=== PATIENT | female | born 1950 | race Asian ===

== ENCOUNTER 2016-12-27 10:03 | Inpatient (IN) | payer MEDICAID ==
[~2016-12-27] VITALS: Ht 149.9 cm; Wt 49.5 kg
--- NOTE | 2016-12-27 10:30 | NUR ---
PT BIB [facility] FOR R SIDE NECK MASS X 7 MONTHS AGO. PT ALSO COMPLAINS OF MINIMAL DIFFICULTY SWALLOWING AND PRESSURE HEADACHES. VSS. PT AAOX3. SEEN BY MD FOR EVAL. AWAITING FOR ORDERS. SAFETY AND COMFORT MEASURES PROVIDED. WILL MONITOR.
--- NOTE | 2016-12-27 10:42 | NUR ---
IV ACCESS STARTED, BLOOD DRAWN FOR LABS.
[2016-12-27 10:44] LABS: BASOPHILS # (AUTO) 0.1 /CMM (0.0-0.2); BASOPHILS % (AUTO) 0.7 % (0.0-2.0); EOSINOPHILS # (AUTO) 0.2 /CMM (0.0-0.7); EOSINOPHILS % (AUTO) 1.6 % (0.0-6.0); HEMATOCRIT 36 % (33-45); HEMOGLOBIN 11.8 g/dL (11.5-14.8); LYMPHOCYTES # (AUTO) 3.2 /CMM (0.8-4.8); LYMPHOCYTES % (AUTO) 30.7 % (20.0-44.0); MEAN CORPUSCULAR HEMOGLOBIN 28 PG (26.0-33.0); MEAN CORPUSCULAR HGB CONC 33 g/dl (31.0-36.0); MEAN CORPUSCULAR VOLUME 87 fL (82-100); MONOCYTES # (AUTO) 0.7 /CMM (0.1-1.30); MONOCYTES % (AUTO) 6.4 % (2.0-12.0); NEUTROPHILS # (AUTO) 6.1 /CMM (1.8-8.9); NEUTROPHILS % (AUTO) 60.6 % (43.0-81.0); PLATELET COUNT (AUTO) 438 /CMM (150-450); RED BLOOD CELL COUNT(AUTO) 4.15 MIL/uL (4.0-5.2); WHITE BLOOD COUNT (AUTO) 10.3 K/uL (4.3-11.0)
[2016-12-27 10:51] LABS: POTASSIUM 4.2 mmol/L (3.5-5.1)
[2016-12-27] MEDS ORDERED: IV NS 0.9% 250 ML IV ONE (11:14)
[2016-12-27] MEDS ORDERED: IOHEXOL-300 100 ML VIAL IV ONE (11:14)
--- NOTE | 2016-12-27 11:15 | NUR ---
PT TAKEN TO CT.
--- NOTE | 2016-12-27 11:32 | NUR ---
PT BACK FROM CT.
--- NOTE | 2016-12-27 12:11 | NUR ---
CALLED NOE HUTCHINSON FOR MS BED
[2016-12-27] MEDS ORDERED: TRAM50TA2 PO (12:18)
[2016-12-27] MEDS ORDERED: HYDR25TA4 PO (12:18)
[2016-12-27] MEDS ORDERED: VANCOMYCIN 1 GM in IV D5W 250 ML IV ONE (12:30)
--- NOTE | 2016-12-27 13:15 | NUR ---
REPORT GIVEN TO ERIBERTO CARY FOR MS ROOM 102
--- NOTE | 2016-12-27 13:51 | NUR ---
MS RN ADMITTING NOTES ADMITTED A 75 Y/O FEMALE AT 1335H VIA WHEELCHAIR ACCOMPANIED BY E.R. NURSE AND FAMILY. A/0 X4, VERBALLY RESPONSIVE WITH NO COMPLAINTS OF PAIN. PT HAS DIAGNOSIS OF RIGHT SIDED NECK MASS WITH SIGNIFICANT SECONDARY DX OF HYPERTENSION. PT HAS IV ACCESS ON LEFT FOREARM G#20, INTACT AND PATENT, FLUSHING WELL. V/S CHECKED AND RECORDED. SKIN IS INTACT. BELONGINGS CHECKED, COUNTED AND FILED ON CHART. MD ORDER U/S NEEDLE GUIDED BIOPSY OF NECK. MD AND CHARGE NURSE AWARE OF ADMISSION.
[2016-12-27] MEDS ORDERED: ZOLPIDEM TARTRATE 5 MG TABLET PO PRN (14:30)
[2016-12-27] MEDS ORDERED: TRAMADOL HCL 50 MG TABLET PO PRN (14:30)
[2016-12-27] MEDS ORDERED: HYDROCODONE/APAP 10/325MG 1 EA TABLET PO PRN (14:30)
[2016-12-27] MEDS ORDERED: ONDANSETRON HCL/PF 4 MG/2 ML VIAL IVP PRN (14:30)
[2016-12-27] MEDS ORDERED: ACETAMINOPHEN 325 MG TABLET PO PRN (14:30)
[2016-12-27 15:40] LABS: INR 0.96 (0.87-1.13); PROTHROMBIN TIME 10.3 SECS (9.5-12.7)
--- NOTE | 2016-12-27 15:54 | NUR ---
DR. VILLAGOMEZ RADILOGIST CALLED BIOPSY TO BE DONE FRIDAY SINCE NO PATHOLOGIST AVAILABLE,TONY GIL NOTIFIED AND AGREED,FAMILY MADE AWARE.
[2016-12-27 16:00] VITALS: BP 130/67
--- NOTE | 2016-12-27 18:31 | NUR ---
RN NOTES DR TONY FLORES CAME AND EVALUATED PT. BIOPSY OF NECK TO BE DONE ON FRIDAY. EXPLAINED PROCEDURE TO PT AND VERBALIZED UNDERSTANDING. CONSENT SIGNED BY PT. WILL CONTINUE TO MONITOR PT.
--- NOTE | 2016-12-27 19:02 | NUR ---
,MS RN CLOSING NOTES PATIENT AWAKE AND RESTING IN BED. ALERT AND ORIENTED X4, NO C/O PAIN OR DISCOMFORTS SINCE ADMITTED THIS AFTERNOON. IV ACCESS ON LFA INTACT AND PATENT, SL ONLY. CALL LIGHT WITHIN REACH. BED LOW AND LOCKED. NEEDS ATTENDED WELL. ALL SAFETY MEASURES MAINTAINED. WILL ENDORSED TO NATIONAL ACCOUNT DIRECTOR FOR ELIS.
--- NOTE | 2016-12-27 19:15 | NUR ---
RN INITIAL NOTES RECEIVED PATIENT IN BED, AWAKE AND ALERT X4. PATIENT WITH MASS ON THE R SIDE OF THE NECK, PATIENT ADMITS TO PAIN WITH PALPATION, TENDER TO TOUCH, NOTED WITH DISTAL REDNESS/ERYTHEMA ON SITE. L AC G20, FLUSHED AND PATENT, ON SL. PATIENT'S NEEDS ANTICIPATED AND MET. SAFETY AND COMFORT ENSURED. BED IN LOW AND LOCKED POSITION. CALL LIGHT IN REACH. WILL MONITOR.
[2016-12-27 20:00] VITALS: BP 133/84
--- NOTE | 2016-12-27 22:50 | NUR ---
RN NOTES ENDORSED PATIENT'S CARE TO RAEANN COREAS. PATIENT SLEEPING COMFORTABLY, NO DISTRESS.
--- NOTE | 2016-12-27 23:00 | NUR ---
RN NOTES RECEIVED PATIENT IN BED, AWAKE AND ALERT X4. PATIENT WITH MASS ON THE R SIDE OF THE NECK. IV SITE ON L AC G20, NO S/S OF INFILTRATION NOTED, ON SL. PATIENT'S NEEDS ATTENDED AND MET. SAFETY PRECAUTIONS OBSERVED. BED IN LOW AND LOCKED POSITION. CALL LIGHT IN REACH. WILL CONTINUE TO MONITOR.
[2016-12-28 04:00] VITALS: BP 133/71
[2016-12-28 06:22] LABS: BASOPHILS # (AUTO) 0.1 /CMM (0.0-0.2); BASOPHILS % (AUTO) 0.9 % (0.0-2.0); EOSINOPHILS # (AUTO) 0.2 /CMM (0.0-0.7); HEMATOCRIT 34 % (33-45); HEMOGLOBIN 11.7 g/dL (11.5-14.8); LYMPHOCYTES % (AUTO) 25.6 % (20.0-44.0); MEAN CORPUSCULAR HEMOGLOBIN 30 PG (26.0-33.0); MEAN CORPUSCULAR HGB CONC 34 g/dl (31.0-36.0); MEAN CORPUSCULAR VOLUME 87 fL (82-100); MONOCYTES # (AUTO) 0.7 /CMM (0.1-1.30); MONOCYTES % (AUTO) 9.1 % (2.0-12.0); NEUTROPHILS # (AUTO) 4.7 /CMM (1.8-8.9); NEUTROPHILS % (AUTO) 61.4 % (43.0-81.0); PLATELET COUNT (AUTO) 364 /CMM (150-450); RDW COEFFICIENT OF VARIATION 13.1 (11.5-15.0); RED BLOOD CELL COUNT(AUTO) 3.94 MIL/uL (4.0-5.2); WHITE BLOOD COUNT (AUTO) 7.7 K/uL (4.3-11.0)
[2016-12-28 06:47] LABS: THYROID STIMULATING HORMONE 1.279 uIU/mL (0.358-3.74)
--- NOTE | 2016-12-28 06:57 | NUR ---
RN NOTES PATIENT IN BED, RESTING COMFORTABLY AT THIS TIME, AROUSES EASILY. ALERT X4. PATIENT WITH MASS ON THE R SIDE OF THE NECK. IV SITE ON L AC G20, NO S/S OF INFILTRATION NOTED, ON SL. PATIENT'S NEEDS ATTENDED AND MET. SAFETY PRECAUTIONS OBSERVED. BED IN LOW AND LOCKED POSITION. CALL LIGHT IN REACH. WILL ENDORSE TO NEXT SHIFT FOR ELIS.
--- NOTE | 2016-12-28 07:48 | NUR ---
MS NOTES PATIENT IN BED, RESTING COMFORTABLY AT THIS TIME, A/OX4. RESPRIATIONS EVEN AND UNLABORED, ON ROOM AIR. NOT IN ANY FORM OF DISTRESS OR DISCOMFORT. DENIES PAIN AT THIS TIME. IV SITE ON L AC G20, H/L, NO S/S OF INFILTRATION NOTED. POC DISCUSSED AND AGREED, SAFETY PRECAUTIONS OBSERVED. BED IN LOW AND LOCKED POSITION. CALL LIGHT IN REACH. WILL CONTINUE TO MONITOR.
[2016-12-28 08:00] VITALS: BP 127/68
[2016-12-28 08:08] LABS: ALBUMIN 3.1 g/dL (3.4-5.0); BILIRUBIN,TOTAL 0.3 mg/dL (0.2-1.0); CALCIUM, SERUM 9.2 mg/dL (8.5-10.1); CREATININE 0.8 mg/dL (0.6-1.3); MAGNESIUM 2.1 mg/dL (1.8-2.4); PHOSPHORUS 4.4 mg/dL (2.5-4.9); POTASSIUM 4.1 mmol/L (3.5-5.1); TOTAL PROTEIN, SERUM 9.1 g/dL (6.4-8.2)
[2016-12-28 08:52] VITALS: BP 127/68
[2016-12-28] MEDS ORDERED: HYDROCHLOROTHIAZIDE 25 MG TABLET PO SCH (09:00)
--- NOTE | 2016-12-28 15:17 | NUR ---
ms/rn d/c note seen by tyesha tang. order to return on Friday for admission for oncology evaluation and mass biopsy. patient will be seen by and arrange for outpatient treatment for possible radiation and then resection. discussed poc with patient and granddaughter,
--- NOTE | 2016-12-28 16:00 | NUR ---
D/C NOTE DISCHARGE INSTRUCTIONS GIVEN TO PATIENT AND FAMILY ( GRISELDA CARY.) AGREED AND VERBALIZED UNDERSTANDING OF INSTRUCTIONS GIVEN. REVIEWED MEDICATION ORDERS AND INSTRUCTED TO CONTINUE WITH CURRENT MEDICATIONS. IV REMOVED AND COVERED PROPERLY. BELONGINGS RETURNED AND SIGNED. PATIENT LEFT WITH FAMILY VIA PRIVATE CAR.
[2016-12-30 14:15] LABS: *SPE A/G RATIO 0.5 (0.7-1.7); *SPE ALBUMIN 2.8 g/dL (2.9-4.4); *SPE ALPHA-1-GLOBULIN 0.3 g/dL (0.0-0.4); *SPE ALPHA-2-GLOBULIN 1.1 g/dL (0.4-1.0); *SPE BETA GLOBULIN 2.1 g/dL (0.7-1.3); *SPE GLOBULIN, TOTAL 5.6 g/dL (2.2-3.9); *SPE M-SPIKE Not Observed g/dL (Not Observed); *SPE PROTEIN TOTAL 8.4 g/dL (6.0-8.5); *SPEGAMMA GLOBULIN 2.1 g/dL (0.4-1.8)
== END 2016-12-28 16:45 | disposition home or self-care (01) | DRG 110 ==
LOC: ER 10:11 → MEDSG1 13:20
PROVIDERS: ADMIT Nurse Practitioner Acute Care; ATTEND Nurse Practitioner Acute Care
DX: C76.0 Malignant neoplasm of head, face and neck (principal); E87.1 Hypo-osmolality and hyponatremia; I10 Essential (primary) hypertension; R13.10 Dysphagia, unspecified; I70.0 Atherosclerosis of aorta; Z79.899 Other long term (current) drug therapy; R74.0 Nonspecific elevation of levels of transaminase and lactic acid dehydrogenase [LDH]
CPT/HCPCS: 36415; 70491-TC; 71010-TC; 80048-TC; 80053-TC; 80061-TC; 83605-TC; 83615-TC; 83735-TC; 84100-TC; 84155; 84165; 84443-TC; 85025-TC; 85730-TC; 87040-TC; 87081-TC; A4606; J3370; J7050; J7060; Q9967; Z7610

== ENCOUNTER 2016-12-30 14:43 | Emergency (ER) | payer MEDICAID ==
[~2016-12-30] VITALS: Ht 152.4 cm; Wt 63.5 kg
[~2016-12-30 14:43] MED LIST: HYDR25TA4 PO; TRAM50TA2 PO
--- NOTE | 2016-12-30 15:44 | NUR ---
PT TO ED ROOM 07. A/A/O. NAD. VS WNL. AMBULATORY W/STEADY GAIT. CHANGED TO GOWN. CONNECTED TO MONITOR. HERE FOR HOSPITAL ADMISSION TO [facility]ER[facility] CRITICAL ACCESS HOSPITAL LYMPH NODE BIOPSY, R SIDE
--- NOTE | 2016-12-30 15:44 | NUR ---
CALLED [employer], EDIPHONE OPERATOR WAS PAGED.
--- NOTE | 2016-12-30 16:06 | NUR ---
DR SIDDIQUI ON THE PHONE WITH DR AVINA.
--- NOTE | 2016-12-30 16:42 | NUR ---
IV removed. Catheter intact and site benign. Pressure and 4x4 applied to site. No bleeding noted.Patient discharged to home in stable condition. Written and verbal after care instructions given. Patient verbalizes understanding of instruction. ambulatory with a steady gait.
[2016-12-30 16:43] VITALS: BP 139/85
== END 2016-12-30 16:43 | disposition home or self-care (01) ==
LOC: ER 14:47
DX: R22.1 Localized swelling, mass and lump, neck (principal); I10 Essential (primary) hypertension
CPT/HCPCS: A4606; Z7610

== ENCOUNTER 2017-06-22 10:07 | Inpatient (IN) | payer MEDICAID ==
[~2017-06-22] VITALS: Ht 149.9 cm; Wt 42.6 kg
[2017-06-22] VITALS (29 sets, daily range): BP systolic 86–139; BP diastolic 38–87
--- NOTE | 2017-06-22 10:08 | NUR ---
BIBCG FROM HOME DUE TO ALTERED MENTAL STATUS AND FEVER THAT STARTED THIS AM. PATIENT RECEIVED AWAKE, HOWEVER PATIENT DOES NOT RESPONSE VERBALLY. PATIENT NOTED FEBRILE--10.3.3. PATIENT IS NON DIAPHORETIC. SATING 95% ON ROOM AIR. PATIENT NOTED TACHY ON TELE MONITOR. GOWNED PT AND PLACED ON TELE MONITOR. PENDING MD EVALUATION.
[2017-06-22] MEDS ORDERED: IBUPROFEN 600 MG TABLET PO ONE ×2 (10:21→10:30)
[2017-06-22] MEDS ORDERED: VANCOMYCIN 1 GM in IV D5W 250 ML IV ONE (10:30)
[2017-06-22] MEDS ORDERED: IV NS 0.9% 1,000 ML BAG IV ONE ×2 (10:30)
[2017-06-22] MEDS ORDERED: PIPERACILLIN /TAZOBACTAM 3.375 G in IV D5W 50 ML IV ONE (10:30)
[2017-06-22 10:44] LABS: APPEARANCE,URINE Clear (CLEAR); BILIRUBIN,URINE Negative (NEGATIVE); BLOOD, URINE Trace-lysed Ery/uL (NEGATIVE); COLOR,URINE Yellow (YELLOW); KETONES,URINE Negative (NEGATIVE); LEUKOCYTE ESTERASE ,URINE Negative (NEGATIVE); NITRITE, URINE Negative (NEGATIVE); PROTEIN,URINE 30 mg/dl (NEGATIVE); UGLUCOSE Negative (NEGATIVE); UROBILINOGEN,URINE 0.2 EU/dL (0.2)
[2017-06-22 10:46] LABS: BACTERIA,URINE Few /HPF (None Seen); RBC,URINE 0-2 /HPF (0-2); SQUAMOUS EPITHELIAL CELL,UR Few /HPF (None Seen); WBC,URINE 0-2 /HPF (0-3)
[2017-06-22 11:12] LABS: INR 1.06 (0.85-1.15)
[2017-06-22 11:34] LABS: BASOPHILS % (AUTO) 0.2 % (0.0-2.0); EOSINOPHILS % (AUTO) 0.1 % (0.0-6.0); LYMPHOCYTES # (AUTO) 0.4 /CMM (0.8-4.8); LYMPHOCYTES % (AUTO) 5.2 % (20.0-44.0); MEAN CORPUSCULAR HEMOGLOBIN 32 PG (26.0-33.0); MEAN CORPUSCULAR HGB CONC 37 g/dl (31.0-36.0); MEAN CORPUSCULAR VOLUME 88 fL (82-100); MONOCYTES # (AUTO) 0.4 /CMM (0.1-1.30); NEUTROPHILS # (AUTO) 7.2 /CMM (1.8-8.9); NEUTROPHILS % (AUTO) 89.5 % (43.0-81.0); PLATELET COUNT (AUTO) 113 /CMM (150-450); RDW COEFFICIENT OF VARIATION 14.2 (11.5-15.0)
[2017-06-22 11:38] LABS: HEMATOCRIT 12 % (33-45); HEMOGLOBIN 4.5 g/dL (11.5-14.8)
[2017-06-22 11:40] LABS: CREATININE 1.6 mg/dL (0.6-1.3); POTASSIUM 3.7 mmol/L (3.5-5.1)
[2017-06-22 11:50] LABS: ALBUMIN 1.7 g/dL (3.4-5.0); BILIRUBIN,DIRECT 0.1 mg/dL (0.0-0.2); BILIRUBIN,TOTAL 0.4 mg/dL (0.2-1.0); TOTAL PROTEIN, SERUM 7.2 g/dL (6.4-8.2)
[2017-06-22 11:52] LABS: TROPONIN I 0.023 ng/mL (0.00-0.056)
--- NOTE | 2017-06-22 12:13 | NUR ---
PAGED EPIC FOR PANEL
--- NOTE | 2017-06-22 12:26 | NUR ---
REPORT GIVEN TO RAEANN SAUL FOR ELIS
[2017-06-22] MEDS ORDERED: IV NS 0.9% 1,000 ML IV PRN (12:43)
[2017-06-22 12:56] LABS: LYMPHOCYTES % (MANUAL) 4 % (16-48); MONOCYTES % (MANUAL) 4 % (0-11.0); NEUTROPHILS % (MANUAL) 92 (42-76)
--- NOTE | 2017-06-22 12:56 | NUR ---
transferred to floor via acls protocol
[2017-06-22] MEDS ORDERED: ZOLPIDEM TARTRATE 5 MG TABLET PO PRN (13:00)
[2017-06-22] MEDS ORDERED: Z GUARD REMEDY 2 OZ OINT TP PRN ×2 (13:00→13:15)
[2017-06-22] MEDS ORDERED: MAG HYDROX/AL HYDROX/SIMETH 30 ML UDC PO PRN (13:00)
[2017-06-22] MEDS ORDERED: ACETAMINOPHEN 325 MG TABLET PO PRN (13:00)
[2017-06-22] MEDS ORDERED: ONDANSETRON HCL/PF 4 MG/2 ML VIAL IVP PRN ×2 (13:00→13:15)
[2017-06-22] MEDS ORDERED: MAGNESIUM HYDROXIDE 30 ML UDC PO PRN ×2 (13:00→13:15)
[2017-06-22] MEDS ORDERED: HYDROCODONE/APAP 5/325MG 1 EACH TABLET PO PRN (13:00)
[2017-06-22] MEDS ORDERED: FEE PK DOSING 1 MIN EA MC ONE (13:41)
[2017-06-22] MEDS: IV NS 0.9% 1,000 ML IV PRN (13:47)
[2017-06-22] MEDS: ACETAMINOPHEN 325 MG TABLET PO PRN (14:08)
--- NOTE | 2017-06-22 14:30 | NUR ---
RN INITIAL NOTES RECEIVED PT AWAKE, UNABLE TO COMPREHEND AND FOLLOW COMMANDS. ON 02 AT 3LPM VIA NC. NO RESPIRATORY DISTRESS NOTED. HOB ELEVATED. NO SIGNS OF PAIN NOTED. CHANNING PICC LINE IN PLACE. RAC #[address] GT IN PLACE, CLAMPED. FC IN PLACE. NO SEDIMENTS NOR HEMATURIA NOTED. BODY ASSESSMENT DONE. SKIN INTACT. PT CONNECTED TO MONITOR. NO SIGNS OF ACTIVE BLEEDING NOTED. DR. VARGAS AWARE OF ADMISSION. WILL CONTINUE TO MONITOR.
[2017-06-22] MEDS: PANTOPRAZOLE 40 MG VIAL IV SCH (16:26)
[2017-06-22] MEDS: PIPERACILLIN /TAZOBACTAM 2.25 G in IV D5W 50 ML IV SCH (17:21)
--- NOTE | 2017-06-22 18:51 | NUR ---
RN CLOSING NOTES PT AWAKE, A/OX1. NO RESPIRATORY DISTRESS NOTED. DENIES ANY PAIN. PICC IN PLACE. TRANSFUSING 1 UNIT OF PRBC. NO REACTION NOTED. FC IN PLACE. ADEQUATE OUTPUT NOTED. KEPT COMFORTABLE. WILL ENDORSE FOR CONTINUITY OF CARE.
[2017-06-22] MEDS: HYDROCODONE/APAP 5/325MG 1 EACH TABLET PO PRN (21:56)
[2017-06-23] VITALS (43 sets, daily range): BP systolic 80–124; BP diastolic 42–68
[2017-06-23] MEDS: PIPERACILLIN /TAZOBACTAM 2.25 G in IV D5W 50 ML IV SCH ×5 (00:14→23:18)
[2017-06-23] MEDS: ZOLPIDEM TARTRATE 5 MG TABLET PO PRN ×2 (00:31→20:41)
[2017-06-23 05:18] LABS: BASOPHILS % (AUTO) 0.2 % (0.0-2.0); HEMOGLOBIN 7.1 g/dL (11.5-14.8); LYMPHOCYTES # (AUTO) 0.5 /CMM (0.8-4.8); LYMPHOCYTES % (AUTO) 8.4 % (20.0-44.0); MEAN CORPUSCULAR HEMOGLOBIN 30 PG (26.0-33.0); MEAN CORPUSCULAR HGB CONC 35 g/dl (31.0-36.0); MEAN CORPUSCULAR VOLUME 86 fL (82-100); MONOCYTES # (AUTO) 0.2 /CMM (0.1-1.30); NEUTROPHILS # (AUTO) 4.9 /CMM (1.8-8.9); NEUTROPHILS % (AUTO) 87.4 % (43.0-81.0); PLATELET COUNT (AUTO) 89 /CMM (150-450); RDW COEFFICIENT OF VARIATION 14.5 (11.5-15.0); RED BLOOD CELL COUNT(AUTO) 2.35 MIL/uL (4.0-5.2); WHITE BLOOD COUNT (AUTO) 5.6 K/uL (4.3-11.0)
[2017-06-23 05:34] LABS: CALCIUM, SERUM 8.2 mg/dL (8.5-10.1); CREATININE 1.3 mg/dL (0.6-1.3); MAGNESIUM 1.5 mg/dL (1.8-2.4); PHOSPHORUS 3.4 mg/dL (2.5-4.9)
[2017-06-23 05:50] LABS: POTASSIUM 2.7 mmol/L (3.5-5.1)
[2017-06-23 05:52] LABS: HEMATOCRIT 20 % (33-45)
[2017-06-23] MEDS: IV NS 0.9% 1,000 ML IV PRN ×2 (06:10→23:18)
[2017-06-23 06:26] LABS: BAND % (MANUAL) 3 % (0.0-5.0); LYMPHOCYTES % (MANUAL) 9 % (16-48); MONOCYTES % (MANUAL) 4 % (0-11.0); NEUTROPHILS % (MANUAL) 84 (42-76)
[2017-06-23] MEDS ORDERED: PANTOPRAZOLE 40 MG TABLET.DR PO SCH ×2 (07:30)
--- NOTE | 2017-06-23 08:03 | NUR ---
INITIAL GUIDANCE AND CONTROL SYSTEM ENGINEER NOTE RCVD PT SLEEPING IN BED, EASILY AROUSED TO NAME/LIGHT TOUCH, ABLE TO FOLLOW COMMANDS. PER REPORT PT TAGALOG SPEAKING VIA IT SERVICE CONTINUITY SUPERVISOR PT ABLE TO STATE NAME BUT UNABLE TO REMEMBER DATE OR WHERE SHE'S AT. PT WAS RE-ORIENTED IN TAGALOG. SR ON TELE. BREATHING WELL ON 3L NC. DHILLON TO GRAVITY DRAINING PALE, YELLOW URINE. G-TUBE PLACEMENT VERIFIED BY AUSCULTATION/ASPIRATION. CLAMPED AT THIS TIME. NO ACTIVE SIGNS OF BLEEDING OBSERVED UPON ASSESSMENT. CHANNING PICC C/D/I/PATENT. ONLY ONE PORT PATENT AT THIS TIME. WILL CONTINUE TO MONITOR PT FOR SAFETY AND COMFORT. CALL LIGHT WITHIN REACH. BED IN LOW AND LOCKED POSITION. PT HAS LOW GRADE FEVER WILL CONTINUE TO MONITOR.
[2017-06-23] MEDS: POTASSIUM CL. PREMIX PERIPHER. 50 ML IV SCH ×8 (08:20→17:15)
[2017-06-23] MEDS: Magnesium 1GM/D5W 100ML PREMIX 100 ML IV SCH ×2 (08:20→09:31)
[2017-06-23] MEDS: ACETAMINOPHEN 325 MG TABLET PO PRN ×2 (09:32→20:42)
[2017-06-23] MEDS ORDERED: VANCOMYCIN 500 MG in IV D5W 100 ML IV SCH (11:00)
[2017-06-23] MEDS ORDERED: VANCOMYCIN 0.75 GM in IV D5W 250 ML IV SCH (12:00)
[2017-06-23] MEDS: VANCOMYCIN 0.75 GM in IV D5W 250 ML IV SCH (12:42)
[2017-06-23] MEDS: PANTOPRAZOLE 40 MG VIAL IV SCH (15:25)
--- NOTE | 2017-06-23 18:22 | NUR ---
BI TRI OPERATOR NOTE PT IN STABLE CONDITION SHOWING NO S/O DISTRESS/PAIN, TAGALOG SPEAKING. SR ON TELE. TOLERATING O2 VIA NC. DHILLON TO GRAVITY DRAINING CLEAR, YELLOW URINE. PEG CLAMPED. CHANNING PICC C/D/I/ONE PORT PATENT. PT'S CARE WILL BE ENDORSED TO BUSINESS INFO CONSULTANT RN FOR CONTINUITY OF CARE. BED IN LOW AND LOCKED POSITION. CALL LIGHT WITHIN REACH.
[2017-06-23] MEDS ORDERED: LEVOFLOXACIN (500MG) 500 MG TABLET PO SCH (19:30)
[2017-06-23] MEDS ORDERED: LEVOFLOXACIN (500MG) 500 MG TABLET PO ONE (19:30)
--- NOTE | 2017-06-23 21:00 | NUR ---
RN NOTES RECEIVED PT AWAKE WATCHING TV ON BED AOX 2 ABLE TO VERBALIZED NEEDS AND FEELINGS. NO ACUTE RESP DISTRESS ON O2 3LPM VIA NC TOLERATED WELL SATING 100% SR HR 87 ON TELE MONITOR. IV SITE ON CHANNING PICC LINE RUNNING WITH NS @ 75 CC/HR INTACT AND PATENT. BLOOD CULTURE DRAWN FROM PICC LINE AND FROM PERIPHERAL LINE BY LABS. NPO BY MOUTH WITH CLAMPED PEG INTACT, PATENCY CHECKED. F/C DRAINED WITH YELLOW CLEAR COLOR URINE. PT STATED " [facility], JULITA BASSETT AND SALVATORE FISHMAN" (I MIGHT HERE, MY CHILDREN STILL IN THE [facility]) COMFORT CARE RENDERED TO PATIENT. EFFECTIVE, PT SMILE AFTERWARDS. PLAN OF CARE PROVIDED PT IS COMPLAINT WITH. CARE. WILL FREQ. MONITOR.
[2017-06-24] VITALS (33 sets, daily range): BP systolic 98–149; BP diastolic 43–93
[2017-06-24] MEDS: HYDROCODONE/APAP 5/325MG 1 EACH TABLET PO PRN ×4 (03:01→22:17)
[2017-06-24 05:17] LABS: CALCIUM, SERUM 8.1 mg/dL (8.5-10.1)
[2017-06-24 05:32] LABS: POTASSIUM 2.6 mmol/L (3.5-5.1)
--- NOTE | 2017-06-24 05:45 | NUR ---
RN NOTES CALLED DR. MACDONALD REGARDING CRITICAL LAB RESULT OF POTASSIUM WAITING FOR THE CALL BACK
[2017-06-24] MEDS: PIPERACILLIN /TAZOBACTAM 2.25 G in IV D5W 50 ML IV SCH ×2 (06:10→11:28)
[2017-06-24] MEDS ORDERED: POTASSIUM CL. PREMIX PERIPHER. 50 ML IV SCH (06:30)
--- NOTE | 2017-06-24 06:35 | NUR ---
RN NOTES DR. MACDONALD CALLED BACK AND REPORT ABOUT POTASSIUM 2.6 WITH NEW ORDER TO GIVE KCL 80 MEQ IV NOTED AND CARRIED OUT ORDERS. PT ASLEEP AT THIS TIME DENIES PAIN OR DISCOMFORT. MORE ALERT. INFORMED ABOUT THE POTASSIUM LEVEL AND TREATMENT VERBALIZED UNDERSTANDING DENIES ANY CHEST PAIN, NO TACHYCARDIA. VS WNL. REMAINED SR HR 70'S - 80'S WILL ENDORSED CONTINUITY OF CARE TO AM NURSE.
[2017-06-24 07:44] LABS: EOSINOPHILS % (AUTO) 0.1 % (0.0-6.0); LYMPHOCYTES # (AUTO) 0.2 /CMM (0.8-4.8); LYMPHOCYTES % (AUTO) 12.3 % (20.0-44.0); MEAN CORPUSCULAR HEMOGLOBIN 31 PG (26.0-33.0); MEAN CORPUSCULAR HGB CONC 35 g/dl (31.0-36.0); MEAN CORPUSCULAR VOLUME 87 fL (82-100); MONOCYTES # (AUTO) 0.2 /CMM (0.1-1.30); MONOCYTES % (AUTO) 8.3 % (2.0-12.0); NEUTROPHILS # (AUTO) 1.6 /CMM (1.8-8.9); NEUTROPHILS % (AUTO) 79.3 % (43.0-81.0); PLATELET COUNT (AUTO) 75 /CMM (150-450); RDW COEFFICIENT OF VARIATION 14.6 (11.5-15.0); RED BLOOD CELL COUNT(AUTO) 2.09 MIL/uL (4.0-5.2)
--- NOTE | 2017-06-24 07:46 | NUR ---
INITIAL COUNTER MOLDER NOTE RCVD PT AWAKE AND ALERT, SHOWING NO S/O DISTRESS/PAIN AT THIS TIME. SR ON TELE. ON RA TOLERATING WELL. DHILLON TO GRAVITY DRAINING PALE, YELLOW URINE. PEG PLACEMENT VERIFIED BY AUSCULTATION/ASPIRATION. NO GASTRIC CONTENT OBTAINED. CHANNING PICC C/D/I/PATENT (ONE PORT ONLY). WILL CONTINUE TO MONITOR FOR SAFETY AND COMFORT. BED IN LOW AND LOCKED POSITION. CALL LIGHT WITHIN REACH.
[2017-06-24 08:13] LABS: HEMOGLOBIN 6.4 g/dL (11.5-14.8)
[2017-06-24 08:14] LABS: HEMATOCRIT 18 % (33-45)
--- NOTE | 2017-06-24 09:11 | NUR ---
YARN INSPECTOR NOTE PHARMACY CALLED REQUESTING MISSING KCl, THEY'LL SEND IT SOON.
[2017-06-24] MEDS: ACETAMINOPHEN 325 MG TABLET PO PRN (10:08)
[2017-06-24 10:14] LABS: BAND % (MANUAL) 1 % (0.0-5.0); LYMPHOCYTES % (MANUAL) 13 % (16-48); MONOCYTES % (MANUAL) 4 % (0-11.0); NEUTROPHILS % (MANUAL) 82 (42-76)
[2017-06-24] MEDS ORDERED: POTASSIUM CHLORIDE 20 MEQ POWDER PACKET GT ONE ×3 (11:00→15:00)
[2017-06-24] MEDS: POTASSIUM CL. PREMIX PERIPHER. 50 ML IV SCH ×5 (11:25→23:09)
--- NOTE | 2017-06-24 12:25 | NUR ---
D/W DR WRIGHT CASE, ANEMIA, AND TYPES OF PACKED CELLS TO TRANSFUSE. STATES NO NEED FOR CMV NEGATIVE BLOOD
[2017-06-24] MEDS: VANCOMYCIN 0.75 GM in IV D5W 250 ML IV SCH (12:31)
[2017-06-24] MEDS: FIBERSOURCE HN 1,000 ML BOTTLE GT PRN (13:38)
[2017-06-24] MEDS: PANTOPRAZOLE 40 MG VIAL IV SCH (15:18)
--- NOTE | 2017-06-24 18:57 | NUR ---
LASTEX OPERATOR NOTE BLOOD TRANSFUSION IN PROGRESS, VITAL SIGNS REMAIN STABLE. SR ON TELE. TOLERATING RA, DHILLON IN PLACE PALE, YELLOW URINE. PEG PLACEMENT VERIFIED BY AUSCULTATION/ASPIRATION. CHANNING PICC C/D/I/PATENT. NO S/O INFILTRATION/PHLEBITIS OBSERVED. PRBC INFUSING. PT'S CARE ENDORSED TO SLOT EDITOR RN FOR CONTINUITY OF CARE. BED IN LOW AND LOCKED POSITION.
[2017-06-24] MEDS: LEVOFLOXACIN (250MG) 250 MG TABLET PO SCH (19:31)
--- NOTE | 2017-06-24 20:00 | NUR ---
BARREL LINE OPERATOR - NOTES - RECEIVED PT AWAKE AND ALERT, SHOWING NO S/S DISTRESS/PAIN AT THIS TIME. SR ON TELE. ON RA TOLERATING WELL. DHILLON TO GRAVITY DRAINING PALE, YELLOW URINE. PEG PLACEMENT VERIFIED BY AUSCULTATION/ASPIRATION 40 ML OF RESIDUALS. CHANNING PICC C/D/I/PATENT (ONE PORT ONLY). WILL CONTINUE TO MONITOR FOR SAFETY AND COMFORT. BED IN LOW AND LOCKED POSITION. CALL LIGHT WITHIN REACH.
[2017-06-24] MEDS: CEFEPIME 1 GM in IV D5W 50 ML IV SCH (21:17)
--- NOTE | 2017-06-24 21:26 | NUR ---
PT HAD EPISODE OF NAUSEA, STARTED SPITTING UP INTO BASIN, BUT DID NOT VOMIT, ZOFRAN 4MG GIVEN
[2017-06-24] MEDS: ZOLPIDEM TARTRATE 5 MG TABLET PO PRN (21:35)
[2017-06-24] MEDS: TRAMADOL HCL 50 MG TABLET PO PRN (21:35)
[2017-06-25] VITALS (14 sets, daily range): BP systolic 121–139; BP diastolic 66–84
--- NOTE | 2017-06-25 00:35 | NUR ---
PT PLACED NPO FOR EGD TOMORROW
[2017-06-25] MEDS: IV NS 0.9% 1,000 ML IV PRN ×2 (04:22→22:05)
[2017-06-25] MEDS: ACETAMINOPHEN 325 MG TABLET PO PRN ×2 (04:26→12:22)
[2017-06-25 04:58] LABS: BASOPHILS % (AUTO) 0.5 % (0.0-2.0); EOSINOPHILS % (AUTO) 0.3 % (0.0-6.0); HEMATOCRIT 33 % (33-45); HEMOGLOBIN 11.7 g/dL (11.5-14.8); LYMPHOCYTES # (AUTO) 0.4 /CMM (0.8-4.8); LYMPHOCYTES % (AUTO) 28.5 % (20.0-44.0); MEAN CORPUSCULAR HEMOGLOBIN 31 PG (26.0-33.0); MEAN CORPUSCULAR HGB CONC 35 g/dl (31.0-36.0); MEAN CORPUSCULAR VOLUME 87 fL (82-100); MONOCYTES # (AUTO) 0.2 /CMM (0.1-1.30); MONOCYTES % (AUTO) 15.3 % (2.0-12.0); NEUTROPHILS # (AUTO) 0.7 /CMM (1.8-8.9); NEUTROPHILS % (AUTO) 55.4 % (43.0-81.0); PLATELET COUNT (AUTO) 68 /CMM (150-450); RDW COEFFICIENT OF VARIATION 13.8 (11.5-15.0); RED BLOOD CELL COUNT(AUTO) 3.82 MIL/uL (4.0-5.2)
[2017-06-25 05:19] LABS: CALCIUM, SERUM 8.8 mg/dL (8.5-10.1); MAGNESIUM 1.3 mg/dL (1.8-2.4); PHOSPHORUS 1.4 mg/dL (2.5-4.9); POTASSIUM 3.7 mmol/L (3.5-5.1)
[2017-06-25 05:34] LABS: WHITE BLOOD COUNT (AUTO) 1.3 K/uL (4.3-11.0)
[2017-06-25 05:54] LABS: D-DIMER 6.84 mg/L(FEU (0.17-0.50); INR 1.1 (0.87-1.13)
[2017-06-25 06:18] LABS: LYMPHOCYTES % (MANUAL) 30 % (16-48); NEUTROPHILS % (MANUAL) 54 (42-76)
[2017-06-25 06:19] LABS: MONOCYTES % (MANUAL) 16 % (0-11.0)
[2017-06-25] MEDS: CEFEPIME 1 GM in IV D5W 50 ML IV SCH ×2 (09:07→21:54)
[2017-06-25] MEDS: Magnesium 1GM/D5W 100ML PREMIX 100 ML IV SCH ×3 (10:40→13:42)
--- NOTE | 2017-06-25 11:13 | NUR ---
HAT LACER NOTE 0720: Received A/Ox4 patient. No respiratory distress noted, on room air tolerated. No c/o discomfort at this time. With MARY PICC intact. IVF infusing as ordered. Jamil cath intact, noted with clear yellow urine drained to BSD. SR 80's on the monitor. GT intact, clamped. 0850 Spoke with Purvi CARY re: consent for EGD and agreed, witnessed by STU Gunter RN. 1030: Visited by Purvi CARY, aware for the POC. Patient aware for the POC. Awaitng GI consult for plan for EGD. 1100: Transferred patient via bed, using ACLS protocol. No any significant changes noted. Started 1st bag of 3 of Mg So4. Report given to Dee CARY for ELIS.
--- NOTE | 2017-06-25 11:30 | NUR ---
RN NOTE RECEIVED PT ON BED, AOX3, ON TELE SR 86, ON RA, NO SOB, CO BEING HUNGRY, IV RUNNING, IN MARY PICCLINE, G TUBE CLAMPED, DHILLON CATHETER IN PLACE. BED ALARM ON, BED LOCKED AND LOW POSITION, CALL LIGHT WITHIN REACH, WILL MONITOR.
--- NOTE | 2017-06-25 12:00 | NUR ---
RN NOTE SPOKE WITH ELTON POLLARD AND PER HER NO EGD TODAY BUT TOMORROW, SHE WILL PUT HER ON SCHEDULE. IT IS OKAY TO RESUME TUBE FEDING FOR NOW AND TO KEEP HER NPO POST MIDNIGHT 06/26/17 0000. SAFETY MONITORED AT ALL TIMES, CALL LIGHT WITHIN REACH.
[2017-06-25] MEDS: FIBERSOURCE HN 1,000 ML BOTTLE GT PRN (14:22)
[2017-06-25] MEDS ORDERED: NEUTRA PHOS 1 POWD.PACKET NG ONE (14:30)
[2017-06-25] MEDS: PANTOPRAZOLE 40 MG VIAL IV SCH (15:58)
--- NOTE | 2017-06-25 19:30 | NUR ---
GRAVITY PROSPECTOR INITIAL NOTE PT RECEIVED AWAKE AND SITTING UP IN BED. A/O X 2-3 SPEAKS TAGALOG WITH VERY LITTLE DANISH. ON ROOM AIR AND SATURATING 100%. BREATHING EVEN, REGULAR AND UNLABORED. TELE- SINUS RHYTHM 90. IV MARY PICC CLEAN, INTACT WITH FLUIDS INFUSING. GTUBE SITE CLEAN AND DRY. GTUBE FEEDING WELL TOLERATED WITH NO RESIDUALS NOTED. HOB ELEVATED AND ON ASPIRATION PRECAUTIONS. REVERSE ISOLATION OBSERVED. DHILLON CATHETER IN PLACE AND DRAINING BY GRAVITY. ENDORSED TO REMAIN NPO AFTER MIDNIGHT. CALL LIGHT WITHIN REACH. WILL CONTINUE TO MONITOR.
[2017-06-25] MEDS: TBO-FILGRASTIM 300 MCG/0.5 ML SYRINGE SQ SCH (21:54)
[2017-06-25] MEDS: LEVOFLOXACIN (250MG) 250 MG TABLET PO SCH (21:54)
[2017-06-25] MEDS: HYDROCODONE/APAP 5/325MG 1 EACH TABLET PO PRN (22:45)
[2017-06-25] MEDS: ZOLPIDEM TARTRATE 5 MG TABLET PO PRN (23:32)
[2017-06-26] VITALS (7 sets, daily range): BP systolic 123–139; BP diastolic 67–87
--- NOTE | 2017-06-26 07:30 | NUR ---
TUBING MACHINE OPERATOR AM NOTES PT RECEIVED IN BED, ASLEEP, RESPONDS TO NAME AND TOUCH, A/O X 2-3 SPEAKS TAGALOG WITH VERY LITTLE UZBEK. ON ROOM AIR AND SATURATING 198%. BREATHING EVEN, REGULAR AND UNLABORED. SR HR 95. IV MARY PICC, CDI DRESSING, WITH FLUIDS INFUSING. GTUBE SITE CLEAN AND DRY. GTUBE FEEDING CLAMPED FOR NOW. NPO FOR SCHEDULED EGD. HOB ELEVATED AND ON ASPIRATION PRECAUTIONS. REVERSE ISOLATION OBSERVED. DHILLON CATHETER IN PLACE AND DRAINING BY GRAVITY. CALL LIGHT WITHIN REACH. WILL CONTINUE TO MONITOR.
[2017-06-26 07:51] LABS: BASOPHILS % (AUTO) 0.4 % (0.0-2.0); EOSINOPHILS % (AUTO) 0.4 % (0.0-6.0); HEMATOCRIT 33 % (33-45); HEMOGLOBIN 11.8 g/dL (11.5-14.8); LYMPHOCYTES # (AUTO) 0.4 /CMM (0.8-4.8); LYMPHOCYTES % (AUTO) 21.5 % (20.0-44.0); MEAN CORPUSCULAR HEMOGLOBIN 32 PG (26.0-33.0); MEAN CORPUSCULAR HGB CONC 36 g/dl (31.0-36.0); MEAN CORPUSCULAR VOLUME 87 fL (82-100); MONOCYTES # (AUTO) 0.3 /CMM (0.1-1.30); MONOCYTES % (AUTO) 19.6 % (2.0-12.0); NEUTROPHILS % (AUTO) 58.1 % (43.0-81.0); PLATELET COUNT (AUTO) 73 /CMM (150-450); RDW COEFFICIENT OF VARIATION 13.7 (11.5-15.0); RED BLOOD CELL COUNT(AUTO) 3.76 MIL/uL (4.0-5.2)
[2017-06-26 08:06] LABS: WHITE BLOOD COUNT (AUTO) 1.8 K/uL (4.3-11.0)
--- NOTE | 2017-06-26 08:06 | NUR ---
SPACE AND MISSILE OPERATIONS SPACELIFT CLOSING NOTE NO ACUTE DISTRESS NOTED. NPO STATUS MAINTAINED. HOB ELEVATED. ALL NEEDS ATTENDED TO PROMPTLY. CALL LIGHT WITHIN REACH. REVERSE ISOLATION PRECAUTIONS OBSERVED. WILL ENDORSE TO NEXT SHIFT FOR CONTINUITY OF CARE.
[2017-06-26 08:36] LABS: CALCIUM, SERUM 8.3 mg/dL (8.5-10.1); CREATININE 0.9 mg/dL (0.6-1.3); MAGNESIUM 1.8 mg/dL (1.8-2.4); PHOSPHORUS 2.4 mg/dL (2.5-4.9)
[2017-06-26] MEDS: CEFEPIME 1 GM in IV D5W 50 ML IV SCH (09:07)
[2017-06-26] MEDS: HYDROCODONE/APAP 5/325MG 1 EACH TABLET PO PRN ×2 (09:08→16:15)
[2017-06-26 09:34] LABS: POTASSIUM 2.8 mmol/L (3.5-5.1)
[2017-06-26 09:36] LABS: BAND % (MANUAL) 3 % (0.0-5.0); LYMPHOCYTES % (MANUAL) 26 % (16-48); MONOCYTES % (MANUAL) 16 % (0-11.0); NEUTROPHILS % (MANUAL) 55 (42-76)
--- NOTE | 2017-06-26 09:40 | NUR ---
CHILD ABUSE WORKER NOTES K 2.8. DR. YIN AWARE. WILL REPLACED WITH 80 MEQ KLOR CON DIVIDED DOSES.
[2017-06-26] MEDS ORDERED: POTASSIUM CL. PREMIX PERIPHER. 50 ML IV SCH ×3 (10:30→14:30)
--- NOTE | 2017-06-26 10:45 | NUR ---
RN NOTE SPOKE WITH ELTON POLLARD AND INFORMED HER THAT PT'S K LEVEL IS AT 2.9, NEEDS TO BE REPLACED PRIOR TO EGD PER ANESTHESIOLOGIST. DR. YIN AWARE. FOR EGD TOMORROW, SHE WILL PUT HER ON SCHEDULE. IT IS OKAY TO RESUME TUBE FEEDING FOR NOW AND TO KEEP HER NPO POST MIDNIGHT 06/27/17 0000. SAFETY MONITORED AT ALL TIMES, CALL LIGHT WITHIN REACH.
[2017-06-26] MEDS ORDERED: POTASSIUM CHLORIDE 20 MEQ TAB.PRT.SR PO SCH (11:00)
[2017-06-26] MEDS: POTASSIUM CHLORIDE 20 MEQ POWDER PACKET GT SCH ×2 (12:31→13:10)
[2017-06-26] MEDS: FIBERSOURCE HN 1,000 ML BOTTLE GT PRN (13:23)
[2017-06-26] MEDS: IV NS 0.9% 1,000 ML IV PRN (16:11)
[2017-06-26] MEDS: POLYETHYLENE GLYCOL 3350 17 GM POWD.PACK PO PRN (16:14)
[2017-06-26] MEDS: PANTOPRAZOLE 40 MG VIAL IV SCH (16:14)
--- NOTE | 2017-06-26 19:29 | NUR ---
EDUCATION AND OUTREACH COORDINATOR NOTES ALL NEEDS MET. GTF ONGOING AT 30 ML/HR. WELL TOLERATED. NPO PMN FOR EGD IN AM. NO OTHER SIGNIFICANT CHANGE IN CONDITION. PM CARE DONE. PATIENT MADE COMFORTABLE. ENDORSED TO NEXT SHIFT FOR ELIS. Addendum: 06/26/17 at 1934 by FREDA YAN RN ADDENDEUM: DHILLON CATH IN PLACE PATENT INTACT WITH 1100 ML OUTPUT.
--- NOTE | 2017-06-26 19:30 | NUR ---
TREE FRUIT AND NUT FARMING SUPERVISOR INITIAL NOTE PT RECEIVED SLEEPING IN BED BUT EASILY AROUSABLE TO NAME. A/O X2-3 AND ABLE TO MAKE SOME NEEDS KNOWN. ON ROOM AIR, BREATHING REGULAR AND UNLABORED. TELE- SINUS RHYTHM 90. IV MARY PICC CLEAN, PATENT WITH FLUIDS INFUSING AT THIS TIME. GTUBE FEEDING WELL TOLERATED WITHOUT RESIDUALS NOTED. WILL REMAIN NPO AFTER MIDNIGHT FOR PROCEDURE IN THE MORNING. HOB ELEVATED AND ON ASPIRATION PRECAUTIONS. REVERSE ISOLATION OBSERVED. DHILLON CATHETER IN PLACE AND DRAINING BY GRAVITY. CALL LIGHT WITHIN REACH. WILL CONTINUE TO MONITOR.
[2017-06-26] MEDS: TBO-FILGRASTIM 300 MCG/0.5 ML SYRINGE SQ SCH (20:34)
[2017-06-26] MEDS: CEFEPIME 1 GM in IV NS 0.9% 50 ML IV SCH (20:34)
[2017-06-26] MEDS: LEVOFLOXACIN (250MG) 250 MG TABLET PO SCH (20:34)
[2017-06-26] MEDS: TRAMADOL HCL 50 MG TABLET PO PRN (20:37)
[2017-06-27] VITALS (8 sets, daily range): BP systolic 127–156; BP diastolic 72–85
[2017-06-27] MEDS: HYDROCODONE/APAP 5/325MG 1 EACH TABLET PO PRN ×4 (02:47→22:06)
--- NOTE | 2017-06-27 06:00 | NUR ---
RN NOTE PT NOTED WITH SLIGHT HEMATURIA. LEFT MESSAGE WITH MD. AWAITING CALL BACK.
[2017-06-27] MEDS: IV NS 0.9% 1,000 ML IV PRN (06:24)
[2017-06-27] MEDS: TRAMADOL HCL 50 MG TABLET PO PRN (06:24)
[2017-06-27 06:58] LABS: BASOPHILS % (AUTO) 0.2 % (0.0-2.0); EOSINOPHILS % (AUTO) 0.2 % (0.0-6.0); HEMATOCRIT 32 % (33-45); HEMOGLOBIN 11.4 g/dL (11.5-14.8); LYMPHOCYTES # (AUTO) 0.5 /CMM (0.8-4.8); LYMPHOCYTES % (AUTO) 10.5 % (20.0-44.0); MEAN CORPUSCULAR HEMOGLOBIN 31 PG (26.0-33.0); MEAN CORPUSCULAR HGB CONC 35 g/dl (31.0-36.0); MEAN CORPUSCULAR VOLUME 88 fL (82-100); MONOCYTES # (AUTO) 0.6 /CMM (0.1-1.30); NEUTROPHILS # (AUTO) 3.8 /CMM (1.8-8.9); NEUTROPHILS % (AUTO) 77.1 % (43.0-81.0); PLATELET COUNT (AUTO) 68 /CMM (150-450); RDW COEFFICIENT OF VARIATION 13.6 (11.5-15.0); RED BLOOD CELL COUNT(AUTO) 3.68 MIL/uL (4.0-5.2)
[2017-06-27 07:16] LABS: CALCIUM, SERUM 8.9 mg/dL (8.5-10.1); MAGNESIUM 1.5 mg/dL (1.8-2.4); PHOSPHORUS 2.4 mg/dL (2.5-4.9); POTASSIUM 3.3 mmol/L (3.5-5.1)
--- NOTE | 2017-06-27 07:30 | NUR ---
BUTTONER AM NOTES PT RECEIVED IN BED, ASLEEP, RESPONDS TO NAME AND TOUCH, A/O X 2-3 SPEAKS TAGALOG WITH VERY LITTLE GREEK. ON ROOM AIR AND SATURATING 99%. BREATHING EVEN, REGULAR AND UNLABORED. SR HR 87. IV MARY PICC, CDI DRESSING, WITH FLUIDS INFUSING. GTUBE SITE CLEAN AND DRY. GTUBE FEEDING CLAMPED FOR NOW. NPO FOR POSSIBLE EGD. HOB ELEVATED AND ON ASPIRATION PRECAUTIONS. REVERSE ISOLATION OBSERVED. DHILLON CATHETER IN PLACE AND DRAINING BY GRAVITY. CALL LIGHT WITHIN REACH. WILL CONTINUE TO MONITOR.
--- NOTE | 2017-06-27 08:01 | NUR ---
STAKING TECHNICIAN CLOSING NOTE PT REMAINED STABLE DURING SHIFT. NO ACUTE DISTRESS NOTED. PAIN MANAGED WITH MEDICATIONS. NOTED THIS MORNING WITH SLIGHT HEMATURIA IN DHILLON CATHETER BAG. LEFT MESSAGE WITH MD. ENDORSED TO NEXT SHIFT FOR CONTINUITY OF CARE.
[2017-06-27 09:05] LABS: BAND % (MANUAL) 17 % (0.0-5.0); LYMPHOCYTES % (MANUAL) 22 % (16-48); MONOCYTES % (MANUAL) 15 % (0-11.0); NEUTROPHILS % (MANUAL) 46 (42-76)
[2017-06-27] MEDS: CEFEPIME 1 GM in IV NS 0.9% 50 ML IV SCH ×2 (09:46→21:07)
--- NOTE | 2017-06-27 09:46 | NUR ---
DIRECT CARE STAFFER NOTES DUE MEDS GIVEN. MAXIPIME IV STARTED.
[2017-06-27] MEDS ORDERED: POTASSIUM CHLORIDE 20 MEQ POWDER PACKET GT ONE (10:30)
[2017-06-27] MEDS: Magnesium 1GM/D5W 100ML PREMIX 100 ML IV SCH ×2 (12:07→13:17)
--- NOTE | 2017-06-27 12:07 | NUR ---
[employer] ARCHITECT NOTES MAGNESIUM BAG #1 STARTED.
--- NOTE | 2017-06-27 13:17 | NUR ---
HAND LENS POLISHER NOTES MAGNESIUM BAG #2 STARTED.
[2017-06-27] MEDS: FIBERSOURCE HN 1,000 ML BOTTLE GT PRN (13:38)
[2017-06-27] MEDS: PANTOPRAZOLE 40 MG VIAL IV SCH (16:13)
[2017-06-27] MEDS: POLYETHYLENE GLYCOL 3350 17 GM POWD.PACK PO PRN (16:17)
[2017-06-27] MEDS ORDERED: NEUTRA PHOS 1 POWD.PACKET GT ONE (16:30)
--- NOTE | 2017-06-27 19:24 | NUR ---
CERTIFIED RESPIRATORY THERAPIST NOTES ALL NEEDS MET. GTF ONGOING AT 30 ML/HR. WELL TOLERATED. NPO PMN FOR EGD IN AM. NO OTHER SIGNIFICANT CHANGE IN CONDITION. PM CARE DONE. PATIENT MADE COMFORTABLE. ENDORSED TO NEXT SHIFT FOR ELIS. DHILLON CATH IN PLACE PATENT INTACT WITH 1050 ML OUTPUT.
--- NOTE | 2017-06-27 20:00 | NUR ---
RN NOTES RECEIVED PATIENT IN BED WITH NO RESPIRATORY DISTRESS OR SHORTNESS OF BREATH. ROOM AIR WELL TOLERATED WITH O2SAT OF 98%. COMPLAINT OF GENERALIZED PAIN. ALERT AND ORIENTED WITH CONFUSION. NPO MIDNIGHT. EGD IN AM. NEEDS ATTENDED. KEPT CLEAN AND DRY
[2017-06-27] MEDS: LEVOFLOXACIN (250MG) 250 MG TABLET PO SCH (21:07)
[2017-06-27] MEDS: ZOLPIDEM TARTRATE 5 MG TABLET PO PRN (22:07)
[2017-06-28] VITALS: BP 155/78
[2017-06-28] MEDS: IV NS 0.9% 1,000 ML IV PRN ×2 (01:26→23:35)
[2017-06-28 04:00] VITALS: BP 142/74
[2017-06-28 07:49] LABS: HEMATOCRIT 33 % (33-45); HEMOGLOBIN 11.8 g/dL (11.5-14.8); LYMPHOCYTES # (AUTO) 0.6 /CMM (0.8-4.8); LYMPHOCYTES % (AUTO) 5.2 % (20.0-44.0); MEAN CORPUSCULAR HEMOGLOBIN 31 PG (26.0-33.0); MEAN CORPUSCULAR HGB CONC 36 g/dl (31.0-36.0); MEAN CORPUSCULAR VOLUME 87 fL (82-100); MONOCYTES # (AUTO) 0.7 /CMM (0.1-1.30); MONOCYTES % (AUTO) 6.1 % (2.0-12.0); NEUTROPHILS # (AUTO) 9.8 /CMM (1.8-8.9); NEUTROPHILS % (AUTO) 88.7 % (43.0-81.0); PLATELET COUNT (AUTO) 72 /CMM (150-450); RDW COEFFICIENT OF VARIATION 13.8 (11.5-15.0); RED BLOOD CELL COUNT(AUTO) 3.78 MIL/uL (4.0-5.2); WHITE BLOOD COUNT (AUTO) 11.1 K/uL (4.3-11.0)
--- NOTE | 2017-06-28 07:49 | NUR ---
Tele R.n Received patient in bed no s/s of distress.Breathing even and unlabored.no s/s of distress.no c/o pain .alert oriented with periods of confusion.will continue to monitor for changes.
[2017-06-28 07:53] LABS: CALCIUM, SERUM 8.6 mg/dL (8.5-10.1); CREATININE 0.8 mg/dL (0.6-1.3); MAGNESIUM 1.9 mg/dL (1.8-2.4); PHOSPHORUS 2.3 mg/dL (2.5-4.9); POTASSIUM 3.1 mmol/L (3.5-5.1)
[2017-06-28 08:00] VITALS: BP 142/74
[2017-06-28] MEDS: CEFEPIME 1 GM in IV NS 0.9% 50 ML IV SCH ×2 (08:17→20:56)
[2017-06-28 09:10] LABS: BAND % (MANUAL) 5 % (0.0-5.0); LYMPHOCYTES % (MANUAL) 4 % (16-48); MONOCYTES % (MANUAL) 14 % (0-11.0); NEUTROPHILS % (MANUAL) 77 (42-76)
[2017-06-28] MEDS: HYDROCODONE/APAP 5/325MG 1 EACH TABLET PO PRN ×2 (10:56→19:26)
[2017-06-28 12:00] VITALS: BP 151/87
[2017-06-28] MEDS: POTASSIUM CHLORIDE 20 MEQ POWDER PACKET GT SCH ×2 (12:01→13:25)
[2017-06-28] MEDS ORDERED: ANESTHESIA TRAY IN PYXIS 1 EA TRAY MC ONE (14:12)
[2017-06-28] MEDS: POTASSIUM PHOSPHATE MM 7.5 MMOL in IV NS 0.9% 100 ML IV SCH ×2 (15:35→18:07)
[2017-06-28 16:00] VITALS: BP 162/87
[2017-06-28] MEDS: PANTOPRAZOLE 40 MG VIAL IV SCH (18:07)
--- NOTE | 2017-06-28 19:27 | NUR ---
patient in stable condition.no s/s of distress.all needs attended.safety measures in place.
[2017-06-28 20:00] VITALS: BP 126/83
--- NOTE | 2017-06-28 20:00 | NUR ---
RN NOTES RECEIVED PATIENT IN BED, AWAKE WITH COMPLAINT OF ABDOMINAL AND BACK PAIN. ULTRAM GIVEN AND MAALOX FOR GASTRIC PAIN, WITH HELP. ALERT AND ORIENTED WITH EPISODES OF FORGETFULNESS. NO DISTRESS NOTED. ROOM AIR WELL TOLERATED WITH 02 SAT 98%. ON GTUBE FEEDING, WELL TOLERATED. HOB ELEVATED. NEEDS ATTENDED. KEPT CLEAN AND DRY.
[2017-06-28] MEDS: ZOLPIDEM TARTRATE 5 MG TABLET PO PRN (20:55)
[2017-06-28] MEDS: TRAMADOL HCL 50 MG TABLET PO PRN (20:58)
[2017-06-28] MEDS: LEVOFLOXACIN (250MG) 250 MG TABLET PO SCH (20:59)
[2017-06-28] MEDS: MAG HYDROX/AL HYDROX/SIMETH 30 ML UDC PO PRN (21:00)
[2017-06-29] MEDS: MAG HYDROX/AL HYDROX/SIMETH 30 ML UDC PO PRN (03:10)
[2017-06-29 04:00] VITALS: BP 148/79
--- NOTE | 2017-06-29 06:23 | NUR ---
RN CLOSING NOTES PATIENT IN BED, RESTING COMFORTABLY WITH NO DISTRESS NOTED. BREATHING EVEN AND UNLABORED. COMPLAINT OF ABDOMINAL PAIN AND BACK PAIN. MAALOX AND ULTRAM GIVEN, WITH HELP. AGAIN, AT ABOUT 3AM PATIENT COMPLAINT OF ABDOMINAL PAIN, MAALOX GIVEN WITH HELP. PATIENT WENT TO SLEEP WITH NO FACIAL GRIMICING. NOTED WITH HEMATURIA, NEEDS ATTENDED. KEPT CLEAN AND DRY. WILL ENDORSE TO AM SHIFT FOR CONTINUITY OF CARE.
[2017-06-29] MEDS: HYDROCODONE/APAP 5/325MG 1 EACH TABLET PO PRN ×2 (06:40→14:14)
[2017-06-29 07:26] LABS: CALCIUM, SERUM 8.6 mg/dL (8.5-10.1); CREATININE 0.8 mg/dL (0.6-1.3); POTASSIUM 3.7 mmol/L (3.5-5.1)
--- NOTE | 2017-06-29 07:40 | NUR ---
RN NOTES RECEIVED PATIENT RESTING COMFORTABLY IN BED, EASILY AROUSABLE DURING CARE. IN NO APPARENT PAIN OR DISCOMFORT AT THIS TIME. IV ACCESS TO PATENT AND INTACT, NO REDNESS OR INFILTRATION NOTED. CURRENTLY ON TUBE FEEDING TOLERATED WELL. SAFETY MEASURES IN PLACE, KEPT CLEAN DRY AND COMFORTABLE, CALL LIGHT WITHIN EASY REACH
[2017-06-29 08:00] VITALS: BP 141/79
[2017-06-29] MEDS: CEFEPIME 1 GM in IV NS 0.9% 50 ML IV SCH (08:46)
[2017-06-29] MEDS ORDERED: Sodium Phosphate 15 MMOL in IV D5W 250 ML IV ONE (13:00)
[2017-06-29] MEDS: PANTOPRAZOLE 40 MG VIAL IV SCH (16:15)
[2017-06-29] MEDS ORDERED: CEFTRIAXONE 1 G VIAL IM SCH (17:30)
[2017-06-29] MEDS ORDERED: CEFTRIAXONE 1 G in IV NS 0.9% 50 ML IV SCH (18:00)
--- NOTE | 2017-06-29 18:25 | NUR ---
RN NOTES PATIENT RESTING COMFORTABLY IN BED, EASILY AROUSABLE DURING CARE. IN NO APPARENT PAIN OR DISCOMFORT AT THIS TIME. IV ACCESS TO PATENT AND INTACT, NO REDNESS OR INFILTRATION NOTED,LEFT IN PLACE PATIENT BEING DISCHARGED TO SNF, REPORT GIVEN TO AMOR. CURRENTLY ON TUBE FEEDING TOLERATED WELL, GT PATENT AND INTACT, NO SKIN ISSUES NOTED. SAFETY MEASURES IN PLACE, PT DISCHARGED IN STABLE CONDITION
[2017-07-01 06:09] LABS: *SPE A/G RATIO 0.5 (0.7-1.7); *SPE ALBUMIN 2.2 g/dL (2.9-4.4); *SPE ALPHA-1-GLOBULIN 0.5 g/dL (0.0-0.4); *SPE ALPHA-2-GLOBULIN 1.2 g/dL (0.4-1.0); *SPE BETA GLOBULIN 1.3 g/dL (0.7-1.3); *SPE GLOBULIN, TOTAL 4.5 g/dL (2.2-3.9); *SPE M-SPIKE 0.4 g/dL (Not Observed); *SPEGAMMA GLOBULIN 1.5 g/dL (0.4-1.8)
== END 2017-06-29 18:25 | DRG 720 ==
LOC: ER 10:08 → TELE1 13:29 → ICU 14:20 → TELE1 06-25 11:06 → MEDSG1 06-28 10:01
PROVIDERS: ADMIT Internal Medicine; ATTEND Internal Medicine
PROC: 30233N1 Transfusion of Nonautologous Red Blood Cells into Peripheral Vein, Percutaneous Approach (ICD-10-PCS; principal; 2017-06-22)
PROC: B548ZZA Ultrasonography of Superior Vena Cava, Guidance (ICD-10-PCS; 2017-06-25)
PROC: 02HV33Z Insertion of Infusion Device into Superior Vena Cava, Percutaneous Approach (ICD-10-PCS; 2017-06-25)
PROC: 0DB68ZX Excision of Stomach, Via Natural or Artificial Opening Endoscopic, Diagnostic (ICD-10-PCS; 2017-06-28)
DX: A41.9 Sepsis, unspecified organism (principal); N17.0 Acute kidney failure with tubular necrosis; D61.810 Antineoplastic chemotherapy induced pancytopenia; G92 Toxic encephalopathy; D84.9 Immunodeficiency, unspecified; J18.9 Pneumonia, unspecified organism; D69.59 Other secondary thrombocytopenia; E46 Unspecified protein-calorie malnutrition; E87.1 Hypo-osmolality and hyponatremia; E86.0 Dehydration; D63.8 Anemia in other chronic diseases classified elsewhere; I10 Essential (primary) hypertension; T45.1X5A Adverse effect of antineoplastic and immunosuppressive drugs, initial encounter; Z93.1 Gastrostomy status; D70.9 Neutropenia, unspecified; E87.6 Hypokalemia; Z92.3 Personal history of irradiation; Z92.21 Personal history of antineoplastic chemotherapy; E88.09 Other disorders of plasma-protein metabolism, not elsewhere classified; R13.10 Dysphagia, unspecified; K29.70 Gastritis, unspecified, without bleeding; R73.9 Hyperglycemia, unspecified; Z68.1 Body mass index [BMI] 19.9 or less, adult; K92.2 Gastrointestinal hemorrhage, unspecified; C14.0 Malignant neoplasm of pharynx, unspecified
CPT/HCPCS: 36415; 36569; 71045-TC; 80048-TC; 80076-TC; 80202-TC; 81000-TC; 82784; 83605-TC; 83735-TC; 84100-TC; 84155; 84165; 84484-TC; 85025-TC; 85396; 85730-TC; 86334; 86850-TC; 86921-TC; 87040-TC; 87070-TC; 87081-TC; 87086-TC; 87186-TC; 87400; 88305-TC; 88313-TC; 88342; 92611-TC; 93307-TC; A4216; A4606; A6402; A9563; C1751; C9113; J0692; J0696; J1442; J2405; J2543; J2704; J3370; J3475; J3480; J3490; J7030; J7040; J7060; P9016-BL; Z7610